=== PATIENT | female | born 1995 | race African-American/Black ===

== ENCOUNTER 2017-08-05 05:08 | Emergency (ER) | payer OTHER ==
[~2017-08-05] VITALS: Ht 162.6 cm; Wt 65.8 kg
[~2017-08-05 05:08] MED LIST: ALLEGRA ALLERGY60 MG PO; ALLEGRA-D 24 H1 EACH PO; BACTRIM DS TAB1 EACH PO; CIPROFLOXACIN500 M1 PO; COLACE100 MG PO; FLONASE 0.05%50 MCG NASAL; HYDROCODONE-AP1 EAC6 PO; IBUPROFEN 600600 M1 PO; NAPROSYN500 MG PO; NOHOMEMEDICATIONS; NORCO 5-325 TA1 EACH PO; ORTHO TRI-CYCL1 EACH PO; PERCOCET 5-3251 EACH PO; PHENERGAN 25 MG25 M1 PO; SENNA8.6 MG PO; ZOFRAN ODT4 MG PO; ZYRTEC10 MG PO; [UNRECOGNIZED DRUG - OTHER]
[2017-08-05 06:28] LABS: URINE BILIRUBIN NEGATIVE (Negative); URINE BLOOD 3+ (Negative); URINE CLARITY CLEAR; URINE COLOR YELLOW; URINE GLUCOSE-RANDOM* NEGATIVE (Negative); URINE KETONES NEGATIVE (Negative); URINE NITRITE-REFLEX NEGATIVE (Negative); URINE PROTEIN (DIPSTICK) TRACE (Negative); URINE UROBILINOGEN 0.2 E.U./dl (0.2-1.0)
[2017-08-05 06:33] LABS: URINE LEUKOCYTES-REFLEX TRACE (Negative)
[2017-08-05 06:44] LABS: CASTS None Seen /LPF (None Seen); CRYSTALS None Seen /LPF (None Seen); SQUAMOUS 4-10 Moderate /LPF (0-3); URINE WBC-REFLEX 6-15 Few /HPF (0-5)
[2017-08-05 07:13] LABS: URINE BILIRUBIN NEGATIVE (Negative); URINE BLOOD 1+ (Negative); URINE CLARITY CLEAR; URINE COLOR YELLOW; URINE GLUCOSE-RANDOM* NEGATIVE (Negative); URINE KETONES NEGATIVE (Negative); URINE LEUKOCYTES TRACE (Negative); URINE NITRITE NEGATIVE (Negative); URINE PROTEIN (DIPSTICK) NEGATIVE (Negative); URINE UROBILINOGEN 0.2 E.U./dl (0.2-1.0)
[2017-08-05] MEDS ORDERED: PYRIDIUM200 MG PO (07:38)
[2017-08-05] MEDS ORDERED: HYDROCORTISONE30 G9 RECTAL (07:38)
[2017-08-05] MEDS ORDERED: KEFLEX500 M1 PO (07:38)
[2017-08-05 08:00] LABS: CASTS None Seen /LPF (None Seen); CRYSTALS None Seen /LPF (None Seen); SQUAMOUS 0-3 Few /LPF (0-3); URINE RBC 0-2 Rare /HPF (0-2); URINE WBC 0-5 Rare /HPF (0-5)
[2017-08-05 08:01] LABS: BACTERIA 1-9 Few /HPF (None Seen)
[2017-10-19] MEDS ORDERED: FLEXERIL PO (09:10)
[2018-03-09] MEDS ORDERED: HYDROCORTISONE30 G9 RECTAL (15:03)
== END 2017-08-05 07:41 | disposition home or self-care (01) ==
LOC: ER 05:08
PROVIDERS: Emergency Medicine
DX: K60.2 Anal fissure, unspecified (principal); R32 Unspecified urinary incontinence; R30.0 Dysuria

== ENCOUNTER 2017-12-24 11:23 | Emergency (ER) | payer OTHER ==
[~2017-12-24] VITALS: Ht 162.6 cm; Wt 77.1 kg
[~2017-12-24 11:23] MED LIST changes: +FLEXERIL PO; +HYDROCORTISONE30 G9 RECTAL; +KEFLEX500 M1 PO; +PYRIDIUM200 MG PO
[2017-12-24 11:27] VITALS: BP 114/72
[2017-12-24] MEDS ORDERED: LMX 530 GM TOP (11:56)
[2017-12-24] MEDS ORDERED: SENNA8.6 MG PO (11:56)
[2017-12-24] MEDS ORDERED: ANUSOL-HC25 MG RECTAL (11:56)
== END 2017-12-24 12:07 | disposition home or self-care (01) ==
LOC: ER 11:23
DX: K60.2 Anal fissure, unspecified (principal); F17.210 Nicotine dependence, cigarettes, uncomplicated

== ENCOUNTER 2018-08-14 10:04 | Emergency (ER) | payer BC, OTHER ==
[~2018-08-14] VITALS: Ht 162.6 cm; Wt 68.0 kg
[~2018-08-14 10:04] MED LIST changes: +ANUSOL-HC25 MG RECTAL; +LMX 530 GM TOP
[2018-08-14] MEDS ORDERED: VENTOLIN HFA 1818 GM INH (10:26)
[2018-08-14] MEDS ORDERED: CLARITIN-D 121 EAC1 PO (10:26)
[2018-08-14] MEDS ORDERED: TESSALON PERLE100 MG PO (10:26)
[2018-08-14 10:37] VITALS: BP 120/80
== END 2018-08-14 10:38 | disposition home or self-care (01) ==
LOC: ER 10:04
DX: J06.9 Acute upper respiratory infection, unspecified (principal); F17.210 Nicotine dependence, cigarettes, uncomplicated; Z86.2 Personal history of diseases of the blood and blood-forming organs and certain disorders involving the immune mechanism

== ENCOUNTER 2019-08-01 14:51 | Emergency (ER) | payer BC, OTHER ==
[~2019-08-01] VITALS: Ht 162.6 cm; Wt 72.6 kg
[~2019-08-01 14:51] MED LIST changes: +CLARITIN-D 121 EAC1 PO; +TESSALON PERLE100 MG PO; +VENTOLIN HFA 1818 GM INH
[2019-08-01 15:08] LABS: URINE BILIRUBIN NEGATIVE (Negative); URINE BLOOD NEGATIVE (Negative); URINE CLARITY CLEAR; URINE COLOR YELLOW; URINE GLUCOSE-RANDOM* NEGATIVE (Negative); URINE KETONES NEGATIVE (Negative); URINE PROTEIN (DIPSTICK) NEGATIVE (Negative); URINE UROBILINOGEN 0.2 E.U./dl (0.2-1.0)
[2019-08-01 15:09] LABS: URINE LEUKOCYTES-REFLEX 1+ (Negative); URINE NITRITE-REFLEX POSITIVE (Negative)
[2019-08-01 15:28] LABS: CASTS None Seen /LPF (None Seen); CRYSTALS None Seen /LPF (None Seen); MUCUS 0-3 Light strn/LPF (None Seen); SQUAMOUS 4-10 Moderate /LPF (0-3); URINE RBC None Seen /HPF (0-2); URINE WBC-REFLEX 6-15 Few /HPF (0-5)
[2019-08-01] MEDS ORDERED: ZOFRAN ODT4 MG PO (15:37)
[2019-08-01] MEDS ORDERED: KEFLEX500 M1 PO (15:37)
[2019-08-01] MEDS ORDERED: IBUPROFEN 800800 M1 PO (15:37)
[2019-08-01 15:55] VITALS: BP 111/70
== END 2019-08-01 16:10 | disposition home or self-care (01) ==
LOC: ER 14:51
PROVIDERS: Nurse Practitioner Family
DX: N39.0 Urinary tract infection, site not specified (principal); F17.210 Nicotine dependence, cigarettes, uncomplicated

== ENCOUNTER 2019-10-04 18:33 | Emergency (ER) | payer BC, OTHER ==
[~2019-10-04] VITALS: Ht 162.6 cm; Wt 68.0 kg
[~2019-10-04 18:33] MED LIST changes: +IBUPROFEN 800800 M1 PO
[2019-10-04 19:50] VITALS: BP 109/73
== END 2019-10-04 19:50 | disposition home or self-care (01) ==
LOC: ER 18:33
DX: S86.011A Strain of right Achilles tendon, initial encounter (principal); D57.3 Sickle-cell trait; F17.210 Nicotine dependence, cigarettes, uncomplicated; W06.XXXA Fall from bed, initial encounter; Y93.89 Activity, other specified; Y92.89 Other specified places as the place of occurrence of the external cause; Y99.8 Other external cause status

== ENCOUNTER 2019-12-07 17:54 | Emergency (ER) | payer BC, OTHER ==
[~2019-12-07] VITALS: Ht 162.6 cm; Wt 63.5 kg
[2019-12-07 18:29] LABS: URINE BILIRUBIN NEGATIVE (Negative); URINE BLOOD TRACE (Negative); URINE CLARITY CLEAR; URINE COLOR YELLOW; URINE GLUCOSE-RANDOM* NEGATIVE (Negative); URINE KETONES NEGATIVE (Negative); URINE LEUKOCYTES-REFLEX NEGATIVE (Negative); URINE NITRITE-REFLEX NEGATIVE (Negative); URINE PROTEIN (DIPSTICK) NEGATIVE (Negative); URINE SPECIFIC GRAVITY 1.025 (1.005-1.035); URINE UROBILINOGEN 0.2 E.U./dl (0.2-1.0)
[2019-12-07 18:57] LABS: ABSOLUTE NEUTROPHILS 3.5 thou/uL (1.4-8.2); BASOPHILS 0.4 % (0.0-2.0); EOSINOPHILS 2.7 % (0.0-3.0); HEMATOCRIT 42.3 % (37.0-47.0); HEMOGLOBIN 14.6 gm/dL (12.0-15.0); MCH 31.5 pg (26.0-34.0); MCHC 34.4 g/dL (28.0-37.0); MCV 91.5 fL (80.0-100.0); MONOCYTES 8.9 % (1.0-8.0); PLATELET COUNT 277 thou/uL (150-400); RBC 4.63 mil/uL (4.20-5.00); RDW 14.7 % (10.5-14.5); WBC 5.8 thou/uL (4.0-11.0)
[2019-12-07 19:11] LABS: ALBUMIN 3.7 g/dL (3.4-5.0); CALCIUM 8.7 mg/dL (8.5-10.1); CREATININE 0.9 mg/dL (0.6-1.0); TOTAL PROTEIN 7.6 g/dL (6.4-8.2)
[2019-12-07 19:13] LABS: POTASSIUM 2.9 mmol/L (3.5-5.1)
[2019-12-07] MEDS ORDERED: POTASSIUM20 PO (20:03)
[2019-12-07] MEDS ORDERED: ZOFRAN ODT4 MG DISSOLVE (20:03)
[2019-12-07 20:52] VITALS: BP 101/64
== END 2019-12-07 20:56 | disposition home or self-care (01) ==
LOC: ER 17:54
PROVIDERS: Physician Assistant
DX: E86.0 Dehydration (principal); R11.2 Nausea with vomiting, unspecified; E87.6 Hypokalemia; F17.210 Nicotine dependence, cigarettes, uncomplicated; F12.90 Cannabis use, unspecified, uncomplicated

== ENCOUNTER 2020-02-21 12:09 | Emergency (ER) | payer BC, OTHER ==
[~2020-02-21] VITALS: Ht 162.6 cm; Wt 68.0 kg
[~2020-02-21 12:09] MED LIST changes: +POTASSIUM20 PO; +ZOFRAN ODT4 MG DISSOLVE
[2020-02-21] MEDS ORDERED: ALLEGRA-D 12 H1 EAC1 PO (12:24)
[2020-02-21 13:26] LABS: ABSOLUTE NEUTROPHILS 2.1 thou/uL (1.4-8.2); BASOPHILS 0.7 % (0.0-2.0); EOSINOPHILS 2.3 % (0.0-3.0); HEMATOCRIT 37.5 % (37.0-47.0); HEMOGLOBIN 12.6 gm/dL (12.0-15.0); LYMPHOCYTES 30.4 % (24.0-44.0); MCH 31.6 pg (26.0-34.0); MCHC 33.5 g/dL (28.0-37.0); MCV 94.3 fL (80.0-100.0); PLATELET COUNT 228 thou/uL (150-400); POLYS 56.6 % (36.0-66.0); RBC 3.97 mil/uL (4.20-5.00); RDW 13.7 % (10.5-14.5); WBC 3.7 thou/uL (4.0-11.0)
[2020-02-21 13:31] LABS: CALCIUM 9.3 mg/dL (8.5-10.1); CREATININE 0.9 mg/dL (0.6-1.0); POTASSIUM 4.1 mmol/L (3.5-5.1)
[2020-02-21 15:34] VITALS: BP 99/60
== END 2020-02-21 15:34 | disposition home or self-care (01) ==
LOC: ER 12:09
PROVIDERS: Emergency Medicine
DX: R05 Cough (principal); R11.10 Vomiting, unspecified; F17.210 Nicotine dependence, cigarettes, uncomplicated; Z79.899 Other long term (current) drug therapy; Z20.828 Contact with and (suspected) exposure to other viral communicable diseases

== ENCOUNTER 2020-05-10 11:06 | Emergency (ER) | payer BC, OTHER ==
[~2020-05-10] VITALS: Ht 162.6 cm; Wt 63.5 kg
[~2020-05-10 11:06] MED LIST changes: +ALLEGRA-D 12 H1 EAC1 PO
[2020-05-10 11:24] LABS: URINE BILIRUBIN NEGATIVE (Negative); URINE BLOOD NEGATIVE (Negative); URINE CLARITY CLEAR; URINE COLOR YELLOW; URINE GLUCOSE-RANDOM* NEGATIVE (Negative); URINE KETONES NEGATIVE (Negative); URINE LEUKOCYTES-REFLEX 1+ (Negative); URINE NITRITE-REFLEX NEGATIVE (Negative); URINE PROTEIN (DIPSTICK) NEGATIVE (Negative); URINE SPECIFIC GRAVITY 1.015 (1.005-1.035); URINE UROBILINOGEN 0.2 E.U./dl (0.2-1.0)
[2020-05-10 12:09] LABS: SQUAMOUS >10 Many /LPF (0-3)
[2020-05-10 12:10] LABS: BACTERIA-REFLEX 1-9 Few /HPF (None Seen); CASTS None Seen /LPF (None Seen); CRYSTALS None Seen /LPF (None Seen); URINE RBC None Seen /HPF (0-2)
[2020-05-10 12:11] LABS: URINE WBC-REFLEX 6-15 Few /HPF (0-5)
[2020-05-10 12:23] LABS: ABSOLUTE NEUTROPHILS 2.5 thou/uL (1.4-8.2); BASOPHILS 0.6 % (0.0-2.0); EOSINOPHILS 1.3 % (0.0-3.0); HEMATOCRIT 40.1 % (37.0-47.0); HEMOGLOBIN 13.4 gm/dL (12.0-15.0); LYMPHOCYTES 24.7 % (24.0-44.0); MCH 31.3 pg (26.0-34.0); MCHC 33.5 g/dL (28.0-37.0); MCV 93.2 fL (80.0-100.0); MONOCYTES 11.4 % (1.0-8.0); PLATELET COUNT 286 thou/uL (150-400); RDW 14.2 % (10.5-14.5); WBC 4.1 thou/uL (4.0-11.0)
[2020-05-10 12:31] LABS: CREATININE 0.8 mg/dL (0.6-1.0); POTASSIUM 3.1 mmol/L (3.5-5.1)
[2020-05-10 12:37] LABS: ALBUMIN 3.4 g/dL (3.4-5.0); TOTAL BILIRUBIN 0.4 mg/dL (0.2-1.0); TOTAL PROTEIN 7.4 g/dL (6.4-8.2)
[2020-05-10] MEDS ORDERED: PROMS25 WY RECTAL (15:05)
[2020-05-10 15:29] VITALS: BP 101/59
== END 2020-05-10 15:29 | disposition home or self-care (01) ==
LOC: ER 11:06
PROVIDERS: Physician Assistant
DX: B34.9 Viral infection, unspecified (principal); J06.9 Acute upper respiratory infection, unspecified; F17.210 Nicotine dependence, cigarettes, uncomplicated; Z20.828 Contact with and (suspected) exposure to other viral communicable diseases

== ENCOUNTER 2020-08-20 13:36 | Emergency (ER) | payer BC, OTHER ==
[~2020-08-20] VITALS: Ht 162.6 cm; Wt 59.0 kg
[~2020-08-20 13:36] MED LIST changes: +PROMS25 WY RECTAL
[2020-08-20 14:31] LABS: URINE BILIRUBIN NEGATIVE (Negative); URINE BLOOD TRACE (Negative); URINE CLARITY CLEAR; URINE COLOR YELLOW; URINE GLUCOSE-RANDOM* NEGATIVE (Negative); URINE KETONES NEGATIVE (Negative); URINE LEUKOCYTES-REFLEX NEGATIVE (Negative); URINE NITRITE-REFLEX NEGATIVE (Negative); URINE PROTEIN (DIPSTICK) NEGATIVE (Negative); URINE SPECIFIC GRAVITY 1.015 (1.005-1.035); URINE UROBILINOGEN 0.2 E.U./dl (0.2-1.0)
[2020-08-20 15:45] LABS: BASOPHILS 0.6 % (0.0-2.0); EOSINOPHILS 2.4 % (0.0-3.0); HEMATOCRIT 39.7 % (37.0-47.0); HEMOGLOBIN 13.3 gm/dL (12.0-15.0); LYMPHOCYTES 25.7 % (24.0-44.0); MCH 31.8 pg (26.0-34.0); MCHC 33.5 g/dL (28.0-37.0); MCV 95.1 fL (80.0-100.0); MONOCYTES 8.8 % (1.0-8.0); PLATELET COUNT 304 thou/uL (150-400); POLYS 62.5 % (36.0-66.0); RBC 4.18 mil/uL (4.20-5.00); RDW 15.2 % (10.5-14.5); WBC 4.8 thou/uL (4.0-11.0)
[2020-08-20 16:42] LABS: CALCIUM 8.9 mg/dL (8.5-10.1); CREATININE 0.9 mg/dL (0.6-1.0); POTASSIUM 3.8 mmol/L (3.5-5.1)
[2020-08-20 16:49] LABS: ALBUMIN 3.9 g/dL (3.4-5.0); TOTAL BILIRUBIN 0.6 mg/dL (0.2-1.0); TOTAL PROTEIN 7.4 g/dL (6.4-8.2)
[2020-08-20 17:15] VITALS: BP 114/64
== END 2020-08-20 17:21 | disposition left against medical advice (07) ==
LOC: ER 13:36
PROVIDERS: Nurse Practitioner
DX: M54.5 Low back pain (principal); R10.84 Generalized abdominal pain; F17.210 Nicotine dependence, cigarettes, uncomplicated; Z79.899 Other long term (current) drug therapy

== ENCOUNTER 2021-02-10 12:38 | Emergency (ER) | payer OTHER ==
[~2021-02-10] VITALS: Ht 162.6 cm; Wt 59.0 kg
[2021-02-10 12:38] VITALS: BP 123/76
== END 2021-02-10 14:39 | disposition home or self-care (01) ==
LOC: ER 12:38
PROVIDERS: Nurse Practitioner
DX: R06.00 Dyspnea, unspecified (principal); Z20.822 Contact with and (suspected) exposure to COVID-19; F17.210 Nicotine dependence, cigarettes, uncomplicated